=== PATIENT | female | born 1960 | race African-American/Black ===

== ENCOUNTER → 2023-06-17 | Outpatient (REF) | payer MEDICARE | LOC: EDSTATUS 14:00 → RESP 14:00 | PROVIDERS: ATTEND Internal Medicine Critical Care Medicine | DX: R09.02 Hypoxemia (principal); J30.9 Allergic rhinitis, unspecified; Z68.41 Body mass index [BMI] 40.0-44.9, adult; J96.10 Chronic respiratory failure, unspecified whether with hypoxia or hypercapnia; I10 Essential (primary) hypertension; G47.33 Obstructive sleep apnea (adult) (pediatric) | CPT/HCPCS: 94010; 94727; 94729 ==

== ENCOUNTER → 2024-12-09 | Outpatient (REF) | payer MEDICARE | LOC: RESP 12:42 → EDSTATUS 13:00 | PROVIDERS: ATTEND Nurse Practitioner Family | DX: J96.92 Respiratory failure, unspecified with hypercapnia (principal); J30.9 Allergic rhinitis, unspecified; J96.10 Chronic respiratory failure, unspecified whether with hypoxia or hypercapnia; Z90.2 Acquired absence of lung [part of]; G47.33 Obstructive sleep apnea (adult) (pediatric); I10 Essential (primary) hypertension; R94.2 Abnormal results of pulmonary function studies; Z68.41 Body mass index [BMI] 40.0-44.9, adult | CPT/HCPCS: 94060; 94727; 94729 ==

== ENCOUNTER → 2025-02-14 | Outpatient (RCR) | payer MEDICARE | LOC: RESP 02-09 12:47 | PROVIDERS: ATTEND Nurse Practitioner Family | DX: J96.92 Respiratory failure, unspecified with hypercapnia (principal); I27.20 Pulmonary hypertension, unspecified; R94.2 Abnormal results of pulmonary function studies; Z90.2 Acquired absence of lung [part of] | CPT/HCPCS: 94626; 94799; G0238 ==

== ENCOUNTER 2025-03-16 13:00 | Outpatient (RCR) | payer MEDICARE | END 2025-03-17 | LOC: RESP 13:00 | PROVIDERS: ATTEND Family Medicine | DX: J96.92 Respiratory failure, unspecified with hypercapnia (principal); I27.20 Pulmonary hypertension, unspecified; R94.2 Abnormal results of pulmonary function studies; Z90.2 Acquired absence of lung [part of] | CPT/HCPCS: 94626 ×9; G0238 ×9 ==

== ENCOUNTER 2025-04-13 13:00 | Outpatient (RCR) | payer MEDICARE | END 2025-04-17 | LOC: RESP 13:00 | PROVIDERS: ATTEND Nurse Practitioner Family | DX: J96.92 Respiratory failure, unspecified with hypercapnia (principal); I27.20 Pulmonary hypertension, unspecified; R94.2 Abnormal results of pulmonary function studies; Z90.2 Acquired absence of lung [part of] | CPT/HCPCS: 94626 ×6; G0238 ×6 ==

== ENCOUNTER → 2025-04-27 | Outpatient (REF) | payer MEDICARE ==
[2025-04-27 15:14] LABS: BASOPHILS % 0.3 % (0.0-1.0); EOSINOPHILS % 1.1 % (0.0-6.0); LYMPHOCYTES % 31.4 % (18.0-39.1); MONOCYTES % 5.7 % (4.4-11.3); NEUTROPHILS % 61.0 % (38.7-80.0); RED CELL DISTRIBUTION WIDTH 12.9 % (11.7-14.4)
[2025-04-27 15:36] LABS: CHOL/HDL RATIO 3.7 (3.0-3.6); EST GLOMERULAR FILTRATION RATE 76.0 ML/MIN (>=60); LDL CHOLESTEROL 76.0 MG/DL (60-130)
== END ==
LOC: LAB 14:50
PROVIDERS: ATTEND Family Medicine
DX: E11.9 Type 2 diabetes mellitus without complications (principal); I10 Essential (primary) hypertension; I27.20 Pulmonary hypertension, unspecified; E66.01 Morbid (severe) obesity due to excess calories
CPT/HCPCS: 36415; 80053; 80061; 82044; 82570; 83036; 84436; 84443; 85025

== ENCOUNTER 2025-05-16 13:00 | Outpatient (RCR) | payer MEDICARE | END 2025-05-17 | LOC: RESP 13:00 | PROVIDERS: ATTEND Nurse Practitioner Family | DX: J96.92 Respiratory failure, unspecified with hypercapnia (principal); I27.20 Pulmonary hypertension, unspecified; Z90.2 Acquired absence of lung [part of]; R94.2 Abnormal results of pulmonary function studies | CPT/HCPCS: 94626 ×6; G0238 ×6 ==

== ENCOUNTER → 2025-05-26 | Outpatient (REF) | payer MEDICARE ==
[2025-05-26 12:56] LABS: ABG BASE EXCESS 7.0 mmol/L (-2 - 3); ABG HCO3 31 mmol/L (22-26); ABG OXYGEN SATURATION 99.0 % (95-98); ABG PCO2 44 mmHg (35-45); ABG PH 7.46 (7.35-7.45); ABG PO2 130 mmHg (80-105); ABG TCO2 32
[2025-06-02 13:37] LABS: ABG BASE EXCESS 7.0 mmol/L (-2 - 3); ABG HCO3 31.0 mmol/L (22-26); ABG OXYGEN SATURATION 99.0 % (95-98); ABG PCO2 44.0 mmHg (35-45); ABG PH 7.46 (7.35-7.45); ABG PO2 130.0 mmHg (80-105); ABG TCO2 32.0
== END ==
LOC: RESP 11:45
PROVIDERS: ATTEND Nurse Practitioner Family
DX: J96.10 Chronic respiratory failure, unspecified whether with hypoxia or hypercapnia (principal); Z01.811 Encounter for preprocedural respiratory examination; Z90.2 Acquired absence of lung [part of]
CPT/HCPCS: 36415; 36600; 82805